=== PATIENT | female | born 1985 | race Caucasian/White ===

== ENCOUNTER → 2021-10-17 | Day surgery (SDC) | payer OTHER ==
[~2021-10-17] VITALS: Ht 160 cm; Wt 103.9 kg
[~2021-10-17] MED LIST: BACLOFEN 10MG T10 MG PO; CYMBALTA60 MG PO; TEGRETOL200 M1 PO; ZYRTEC10 M3 PO
[2021-10-17 07:55] LABS: HCG (URINE) SCREEN NEGATIVE (NEGATIVE)
[2021-10-17 08:31] LABS: BASOPHIL 0.4 % (0-2); EOSINOPHIL 1.4 % (0-5); HCT 46.6 % (37.0-47.0); HGB 15.7 g/dl (12.5-16.0); MCH 32.1 pg (25.0-31.0); MCHC 33.7 g/dL (32.0-36.0); MCV 95.3 fL (78.0-100.0); MONOCYTE 5.5 % (0-12); NEUTROPHIL 66.5 % (41-80); NRBC 0; PLT 210 K/uL (150-400); RBC 4.89 M/uL (4.20-5.40); RDW 12.5 % (11.5-14.0); WBC 9.2 K/uL (4.0-10.5)
== END | disposition home or self-care (01) ==
LOC: FAS 07:21
PROVIDERS: Anesthesiology
DX: K02.9 Dental caries, unspecified (principal); K04.7 Periapical abscess without sinus; E66.9 Obesity, unspecified; G40.909 Epilepsy, unspecified, not intractable, without status epilepticus; J45.909 Unspecified asthma, uncomplicated; D64.9 Anemia, unspecified; G47.30 Sleep apnea, unspecified; F17.200 Nicotine dependence, unspecified, uncomplicated; Z68.41 Body mass index [BMI] 40.0-44.9, adult; Z79.899 Other long term (current) drug therapy
CPT/HCPCS: D7140; D7210; D7310; 36415; 84703; 85025; J1100; J1885; J2250; J2405; J2704; J2710; J3010; J7120